=== PATIENT | male | born 1960 | race Caucasian/White ===

== ENCOUNTER → 2020-08-26 | Outpatient (CLI) | payer BC ==
[~2020-08-26] MED LIST: ASCO100019 PO; CALC-178 PO; CYCL10TA2 PO; FENO145T3 PO; HYDR-2769 PO; HYDR12.58 PO; IBUP-1060 PO; LACT1CAP29 PO; LEVO-101 PO
[2020-08-26 11:40] LABS: BASO % 1 % (0-3); EOS # 0.1 x10^3/uL (0.0-0.7); EOS % 3 % (0-3); HEMATOCRIT 40.9 % (39.0-53.0); HEMOGLOBIN 13.5 g/dL (13.0-17.5); LYMPH # 0.6 x10^3/uL (1.0-4.8); LYMPH % 19 % (24-48); MEAN CORPUSCULAR HEMOGLOBIN 30 pg (25-35); MEAN CORPUSCULAR HGB CONC 33 g/dL (31-37); MEAN CORPUSCULAR VOLUME 92 fL (79-100); MONO # 0.3 x10^3/uL (0.0-1.1); MONO % 11 % (0-9); NEUT # 2.2 x10^3/uL (1.8-7.7); NEUT % 67 % (31-73); PLATELET COUNT 53 x10^3/uL (140-400); RED BLOOD COUNT 4.47 x10^6/uL (4.30-5.70); RED CELL DISTRIBUTION WIDTH 17.1 % (11.5-14.5); WHITE BLOOD COUNT 3.3 x10^3/uL (4.0-11.0)
[2020-08-26 12:05] LABS: ALBUMIN 3.1 g/dL (3.4-5.0); ALBUMIN/GLOBULIN RATIO 0.8 (1.0-1.7); CALCIUM 8.7 mg/dL (8.5-10.1); GFR 75.7; POTASSIUM 3.4 mmol/L (3.5-5.1); TOTAL BILIRUBIN 1.4 mg/dL (0.2-1.0); TOTAL PROTEIN 7.1 g/dL (6.4-8.2)
== END ==
LOC: SURGPAT 10:25
PROVIDERS: ATTEND Neurological Surgery
DX: Z01.812 Encounter for preprocedural laboratory examination (principal); M48.02 Spinal stenosis, cervical region; M50.123 Cervical disc disorder at C6-C7 level with radiculopathy; Z20.822 Contact with and (suspected) exposure to COVID-19
CPT/HCPCS: 80053; 85025; 87641; U0003

== ENCOUNTER 2020-09-02 06:05 | Observation (INO) | payer BC ==
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
[2020-09-02] VITALS (9 sets, daily range): BP systolic 109–130; BP diastolic 60–78
[~2020-09-02] VITALS: Ht 179.1 cm; Wt 131.5 kg
[~2020-09-02 06:05] MED LIST changes: +BACITRACIN 50,000 UNIT in IV NORMAL SALINE 1000ML BAG 1,000 ML IRR ONE; +HYDROmorphone 2 MG/ML VIAL IVP PRN; +IV RINGERS,LACTATED 1000ML 1,000 ML IV SCH; +MORPHINE SULFATE 2 MG/ML VIAL. IVP PRN; +PROCHLORPERAZINE 10 MG/2 ML VIAL. IVP PRN; +fentaNYL PF VIAL 100 MCG/2 ML VIAL IVP PRN
[2020-09-02 07:00] LABS: BASO % 1 % (0-3); EOS # 0.1 x10^3/uL (0.0-0.7); EOS % 3 % (0-3); HEMATOCRIT 36.8 % (39.0-53.0); HEMOGLOBIN 12.4 g/dL (13.0-17.5); LYMPH # 0.6 x10^3/uL (1.0-4.8); LYMPH % 18 % (24-48); MEAN CORPUSCULAR HEMOGLOBIN 30 pg (25-35); MEAN CORPUSCULAR HGB CONC 34 g/dL (31-37); MEAN CORPUSCULAR VOLUME 89 fL (79-100); MONO # 0.4 x10^3/uL (0.0-1.1); MONO % 11 % (0-9); NEUT # 2.4 x10^3/uL (1.8-7.7); NEUT % 67 % (31-73); PLATELET COUNT 54 x10^3/uL (140-400); RED BLOOD COUNT 4.12 x10^6/uL (4.30-5.70); RED CELL DISTRIBUTION WIDTH 16.9 % (11.5-14.5); WHITE BLOOD COUNT 3.6 x10^3/uL (4.0-11.0)
[2020-09-02] MEDS ORDERED: BUPIVACAINE-EPI 0.5%-1:200000 MPF 30 ML VIAL. ONE (07:01)
[2020-09-02] MEDS ORDERED: GELATIN SPONGE SIZE 100. ONE (07:01)
[2020-09-02] MEDS ORDERED: THROMBIN TOPICAL 20,000 UNIT SPRAY.SYRN KIT TP ONE (07:01)
[2020-09-02 07:10] LABS: CALCIUM 8.3 mg/dL (8.5-10.1); CREATININE 1.1 mg/dL (0.7-1.3); GFR 67.8; POTASSIUM 3.4 mmol/L (3.5-5.1)
[2020-09-02 07:24] LABS: ALBUMIN 2.9 g/dL (3.4-5.0); ALBUMIN/GLOBULIN RATIO 0.8 (1.0-1.7); TOTAL BILIRUBIN 1.8 mg/dL (0.2-1.0); TOTAL PROTEIN 6.4 g/dL (6.4-8.2)
[2020-09-02] MEDS ORDERED: LIDOCAINE 2% PF 5 ML VIAL. ONE (07:58)
[2020-09-02] MEDS ORDERED: PROPOFOL 50 ML IV ONE ×4 (07:58→12:30)
[2020-09-02] MEDS ORDERED: 0.9 % SODIUM CHLORIDE 20 ML VIAL. IJ ONE ×2 (07:58→10:44)
[2020-09-02] MEDS ORDERED: PROPOFOL 10 MG/ML (20ML) VIAL. IV ONE (07:58)
[2020-09-02] MEDS ORDERED: REMIFENTANIL 2 MG VIAL. IV ONE (07:59)
[2020-09-02] MEDS ORDERED: SUCCINYLCHOLINE 200 MG/10 ML VIAL. ONE (07:59)
[2020-09-02] MEDS ORDERED: ROCURONIUM 50 MG/5 ML VIAL. ONE (07:59)
[2020-09-02] MEDS ORDERED: PHENYLEPHRINE 10 MG/ML VIAL. ONE ×2 (07:59→12:32)
[2020-09-02] MEDS ORDERED: MIDAZOLAM HCL/PF 2 MG/2 ML VIAL. ONE (07:59)
[2020-09-02] MEDS ORDERED: fentaNYL PF VIAL 100 MCG/2 ML VIAL ONE ×3 (07:59→13:16)
[2020-09-02] MEDS ORDERED: DEXAMETHASONE SOD PHOS 4 MG/ML VIAL ONE (09:37)
[2020-09-02] MEDS ORDERED: ONDANSETRON PF 4 MG/2 ML VIAL. ONE (09:37)
[2020-09-02] MEDS ORDERED: SEVOFLURANE > 120 MINUTES. IH ONE (09:56)
[2020-09-02] MEDS ORDERED: diphenhydrAMINE HCL 25 MG CAPSULE PO PRN (10:00)
[2020-09-02] MEDS ORDERED: NALOXONE 0.4 MG/ML VIAL. IV PRN (10:00)
[2020-09-02] MEDS ORDERED: fentaNYL PF VIAL 100 MCG/2 ML VIAL IVP PRN (10:00)
[2020-09-02] MEDS ORDERED: MAG HYDROX/ALUMINUM HYD/SIMETH 30 ML ORAL.SUSP PO PRN (10:00)
[2020-09-02] MEDS ORDERED: diphenhydrAMINE 50 MG/ML VIAL IV PRN (10:00)
[2020-09-02] MEDS ORDERED: CALCIUM CARBONATE 500 MG TAB.CHEW PO PRN (10:00)
[2020-09-02] MEDS ORDERED: MAGNESIUM HYDROXIDE 2,400 MG/30 ML ORAL.SUSP. PO PRN (10:00)
[2020-09-02] MEDS ORDERED: ACETAMINOPHEN 325 MG TABLET. PO PRN (10:00)
[2020-09-02] MEDS ORDERED: 0.9 % SODIUM CHLORIDE 10 ML DISP.SYRIN. IV PRN (10:00)
[2020-09-02] MEDS ORDERED: HYDROcodone/APAP 10/325 1 TAB TABLET PO PRN (10:00)
[2020-09-02] MEDS ORDERED: ONDANSETRON PF 4 MG/2 ML VIAL. IVP PRN (10:00)
[2020-09-02] MEDS: POTASSIUM CL 20MEQ D5-0.45NACL 1,000 ML IV SCH ×2 (10:00→23:20)
[2020-09-02] MEDS ORDERED: REMIFENTANIL 1 MG VIAL. IV ONE ×2 (10:59→12:11)
[2020-09-02] MEDS ORDERED: ALBUTEROL SULFATE 8GM INHALER. INH ONE (11:25)
[2020-09-02] MEDS ORDERED: PROCHLORPERAZINE 10 MG/2 ML VIAL. ONE (13:16)
[2020-09-02] MEDS ORDERED: ceFAZolin SODIUM IV Push 1 GM VIAL. IVP SCH ×2 (14:00)
--- NOTE | 2020-09-02 15:00 | NUR ---
received from recovery. at bedside. states that he still has some numbness in right upper arm and shoulder; along with pain. rating his pain a "8-9". He falls asleep quickly. 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 bilateral hands are warm to touch. dressing to right anterior neck is clean dry intact and soft. No drainage noted. voice is a whisper.
[2020-09-02] MEDS: CYCLOBENZAPRINE 10 MG TABLET. PO SCH ×2 (17:11→20:10)
[2020-09-02] MEDS: ceFAZolin SODIUM 3 GM in IV DEXTROSE 5% 100ML 100 ML IV SCH (17:11)
--- NOTE | 2020-09-02 17:50 | NUR ---
awake able to swallow without difficulty. voided 500cc farida urine. refuses pain medication at this time. requests regular food. dressing to right anterior neck remains unchanged.
[2020-09-02] MEDS: DOCUSATE SODIUM 100 MG CAPSULE. PO SCH (20:14)
[2020-09-03] MEDS: ceFAZolin SODIUM 3 GM in IV DEXTROSE 5% 100ML 100 ML IV SCH ×2 (01:29→07:42)
[2020-09-03 03:26] VITALS: BP 119/63
[2020-09-03 06:00] VITALS: BP 120/65
[2020-09-03] MEDS ORDERED: ceFAZolin SODIUM 3 GM in IV DEXTROSE 5% 100ML 100 ML IV PRN (06:00)
[2020-09-03] MEDS ORDERED: LEVOTHYROXINE 100 MCG TABLET PO SCH (07:30)
[2020-09-03 07:32] VITALS: BP 130/67
[2020-09-03 07:40] VITALS: BP 128/56
[2020-09-03] MEDS: DOCUSATE SODIUM 100 MG CAPSULE. PO SCH (07:40)
[2020-09-03] MEDS: CYCLOBENZAPRINE 10 MG TABLET. PO SCH (07:46)
[2020-09-03] MEDS ORDERED: CALCIUM CARB/VIT D3 500/200 TABLET. PO SCH (09:00)
[2020-09-03] MEDS ORDERED: LACTOBACILLUS RHAMNOSUS GG 1 CAPSULE. PO SCH (09:00)
[2020-09-03] MEDS ORDERED: hydroCHLOROthiazide 12.5 MG CAPSULE PO SCH (09:00)
[2020-09-03] MEDS ORDERED: FENOFIBRATE,MICRONIZED 134 MG CAPSULE PO SCH (09:00)
[2020-09-03] MEDS ORDERED: ASCORBIC ACID 1,000 MG TABLET PO SCH (09:00)
--- NOTE | 2020-09-03 09:00 | NUR ---
Doing well this am. No c/o at this time. Ambulating to bathroom with steady gait and voiding without any issues. Cont. monitor.
[2020-09-03 11:11] VITALS: BP 118/61
[2020-09-03] MEDS ORDERED: DOCU-153 PO (12:45)
--- NOTE | 2020-09-03 12:47 | DISCH ---
DISCHARGE INSTRUCTIONS Condition on Discharge Condition on Discharge: Stable Activity After Discharge Activity Instructions for Disc: Resume previous activity, Activity as ziyad ated, Avoid exertion Other activity instructions: no driving for a week, soft collar for comfort Bathing Instructions: No Tub Bath until see Lifting Instructions after Dis: No heavy lifting, No pulling or pushing, Do not lift >10 pounds Exercise Instruction after Dis: Exercise per therapy, Progress as tolerated Driving Instructions after Dis: No driving for 2 weeks Weight Bearing Status after Di: No restrictions Diet after Discharge Diet after Discharge: Regular Additional Diet Restrictions: resume home diet Diet Texture: Regular Swallowing Supervision: None needed Wound Incision Care Wound/Incision Care: Ice to area for comfort Other wound/incision instructi: may remove dressing 4/7 of dry, no soaking Contacting the DRBenji after DC Call your doctor for: Concerns you may have Follow-Up Follow Up With: Dr. Hernández's nurse in 10-14 days [phone] Treatment/Equipment after DC Adaptive Equipment Issued: None ADONAY HERNÁNDEZ MD Sep 03, 2020 12:46
--- NOTE | 2020-09-03 13:25 | NUR ---
Discharge instruction instructions given. Answered questions and concerns. Verbalized understanding. Offered to give pain med prior to dismissal but refused. Pt discharged home accompanied by spouse.
--- NOTE | 2020-09-05 16:12 | PATHOLOGY ---
[facility] Accession Number: [id number] . 01 Material submitted: . vertebral column - #1 CERVICAL DISC. Modifiers: CERVICAL, DISC . 01 Clinical history: . PRE-OPERATIVE DIAGNOSIS: CERVICAL STENOSIS, HERNIATED DISC WITH RADICULOPATHY OPERATIVE PROCEDURE: ACDF C5-6, C6-7 POST-OPERATIVE DIAGNOSIS: PENDING . 02 Diagnosis: Segments of fibrocartilaginous tissue and bone, cervical disc: - Degenerative changes of fibrocartilaginous tissue. (JPM:viviane; 09/05/2020) MBR 09/05/2020 1242 Local . 02 Comment: There is no evidence of an acute inflammatory process or malignancy. (JPM:viviane; 09/05/2020) . 02 Electronically signed: . Maximilian Bailey MD, Pathologist NPI- [id number] . 01 Gross description: . The specimen is received in formalin, labeled "Ball, Alonso", "cervical disc". Received are multiple fragments of glistening, slightly gritty pale white-orbien possible bone and soft tissue, measuring 3.8 x 3.5 x 0.6 cm in aggregate dimensions. Food Handler sections are submitted in cassette A1, following light decalcification.(SNA; 09/04/2020) MILI/KRYSTEN 09/04/2020 0946 Local . 02 Pathologist provided ICD-10: M99.71, M54.10 . 02 CPT . 996504, [id number] Specimen Comment: A courtesy copy of this report has been sent to [phone] Specimen Comment: Report sent to Specimen Comment: A duplicate report has been generated due to demographic updates. Performed at: [address] [place] [address] [address], [place], [place] [id number] MD Loki Cuevas MD Phone: [phone] Performed at: [address] [id number] MD Maximilian Bailey MD Phone: [phone]
--- NOTE | 2020-09-05 16:24 | OP ---
DATE OF SURGERY: 09/02/2020 PREOPERATIVE DIAGNOSES: 1. Herniated cervical disc, C6-7 right, with severe right cervical radiculopathy. 2. Central disc extrusion C5-6 with severe canal narrowing and cervical myelopathy. OPERATION PERFORMED: Anterior cervical microdiscectomy, C5-6, C6-7; anterior cervical interbody fusion, C5-6, C6-7; anterior cervical plate, C5, C6, C7. The operation was done with EMG monitoring, SSEP monitoring, NIMS monitoring, fluoroscopy, microscopic dissection. SURGEON: Nicholas Hernández M.D. BAR AND FILLER ASSEMBLER: Marine Jules assisted with the surgery. She assisted with the exposure, the microdiscectomy, placement of the hardware as well as closure. OPERATIVE INDICATIONS: The patient is a pleasant 60-year-old man who developed intractable neck and right arm pain, which failed conservative measures. On imaging studies, he had the above-mentioned findings, so I recommended cervical surgery. I spoke with him about the surgery, the risks, the techniques involved and expected postoperative course and he wished to go ahead. DESCRIPTION OF PROCEDURE: Following general endotracheal anesthesia, the patient was positioned supine on the operating room table with his neck in a neutral position, the anterior cervical region was then prepped and draped in standard fashion. DAKOTAH hose and AV impulse boots were applied for DVT prophylaxis. A microscope was draped. Fluoroscopy was draped and brought in the field. Ancef 3 grams was given less than 1 hour prior to initiation of the surgery. Using fluoroscopic guidance, incision was made from the midline around to the right side in a skin crease. I dissected down through skin and subcutaneous tissue. I dissected down sharply, divided the platysma. I then dissected down around the medial aspect of the sternocleidomastoid and carotid artery sheath down the anterior cervical vertebral bodies and reflected the trachea and esophagus contralaterally and I placed [place] anterior cervical retractors. I placed 14 mm pins in C6 and C7. I brought in the microscope during this time. I incised the anterior annulus with #11 blade. I performed a discectomy with pituitary rongeurs. I scraped with cartilaginous endplate. I drilled the posterior spurring. I opened widely bilaterally and opened the posterior ligament and I removed the right-sided herniated disc and decompressed the dura and the exiting roots. I then placed an interbody fusion cage, which was packed with allograft bone after I obtained perfect hemostasis and irrigated. I then removed the pin from C7 and placed it into C5. As I removed the retractors superiorly and I performed the identical operation at C5-C6. At this level, there was a large bulging disc and I removed this and then trimmed the thickened annulus and ligament and I assured myself that the dura was well decompressed and the foramina were clear. Again, I scraped and prepared the region for fusion. Again, I obtained perfect hemostasis and I placed a 6 mm interbody fusion cage, which was packed with allograft bone and tapped into position. I then placed an anterior plate and using the [employer] spine system. I placed superior and inferior screws first, followed by the remaining 14 mm screws, which were then locked. I removed the retractor, irrigated copiously. During the operation, there was more than the usual amount of hemorrhage and at the end of the surgery even though the bed was completely dry, I did leave a drain in brought out through the edge of the anterior incision. Then I irrigated again. I closed the wound in layers and closed the platysma as a separate layer. Subcutaneous tissue was closed, the skin was closed with 4-0 subcuticular stitch. I felt the surgery went very well. The patient was taken from the operating room in excellent condition. I was quite pleased with the surgery. NICHOLAS HERNÁNDEZ MD DR: DAVID/aleja JOB#: [id number] / [id number] KIMBERLY
== END 2020-09-03 13:25 | disposition home or self-care (01) ==
LOC: SURG 06:05 → EDUNIT# 08:30 → 4 SOUTHEST 14:20
PROVIDERS: ADMIT Neurological Surgery; ATTEND Neurological Surgery
DX: M50.123 Cervical disc disorder at C6-C7 level with radiculopathy (principal); M48.02 Spinal stenosis, cervical region; M50.223 Other cervical disc displacement at C6-C7 level; K76.0 Fatty (change of) liver, not elsewhere classified; M19.90 Unspecified osteoarthritis, unspecified site; Z87.891 Personal history of nicotine dependence; Z98.890 Other specified postprocedural states
CPT/HCPCS: 20930; 22551; 22552; 22845; 22853; 36415; 36430; 80053; 85025; 86850; 86900; 86901; 88304; 88311; 96365; 96366; 96375; 97116; 97162; 97530; A4213; A4364; A4556; A4930; A6254; A6258; C1713; C1821; G0378; G0379; J0330; J0690; J1100; J2370; J2405; J2704; J3010; J3490; J7030; J7060; P9035; 76000; A4222; A4223; J0780; J2250